=== PATIENT | male | born 1980 | race African-American/Black ===

== ENCOUNTER 2018-02-11 12:35 | Emergency (ER) | payer MEDICAID ==
--- NOTE | 2018-02-11 13:07 | ER Document Report ---
ED General - General Stated Complaint: POSSIBLE OVERDOSE Time Seen by Provider: 02/11/18 12:49 TRAVEL OUTSIDE OF THE [place] IN LAST 30 DAYS: No - HPI Notes: Patient is a 38-year-old male that presents to the emergency department for chief complaint of an overdose. Patient arrived by EMS for heroin overdose. Family heard him fall upstairs and when they went to find him he was unresponsive. EMS reported patient appeared dusky and had respirations of 2/min. After 2 intranasal Narcan patient woke up and was conversational. He does endorse IV heroin use today. He has a history of heroin abuse but has not used since getting out of rehab a few months ago. He states he also does occasional cocaine and marijuana. Currently he has no complaints. Past Medical History: Heroin abuse, cocaine abuse Past Surgical History: Negative Social History: Heroin, cocaine, marijuana. Denies tobacco. occasional alcohol Family History: Reviewed and noncontributory for presenting illness Allergies: Reviewed, see documented allergy list. REVIEW OF SYSTEMS: CONSTITUTIONAL : No fever No chills No diaphoresis No recent illness EENT: No vision changes No congestion No sore throat CARDIOVASCULAR: No chest pain No palpitations RESPIRATORY: No shortness of breath No cough No difficulty breathing GASTROINTESTINAL: No abdominal pain No nausea No vomiting No diarrhea GENITOURINARY: No dysuria No hematuria No difficulty urinating MUSCULOSKELETAL: No back pain No leg pain No arm pain SKIN: No rashes No lesions LYMPHATIC: No swollen, enlarged glands. NEUROLOGICAL: No lightheadedness No headache No weakness No paresthesias PSYCHIATRIC: No anxiety No depression PHYSICAL EXAMINATION: Vital signs reviewed, nursing noted reviewed. GENERAL: Well-appearing, well-nourished and in no acute distress. HEAD: Atraumatic, normocephalic. EYES: extraocular movements intact, sclera anicteric, conjunctival injection bilaterally ENT: nares patent, oropharynx clear without exudates. Moist mucous membranes. NECK: Normal range of motion, supple without lymphadenopathy LUNGS: Breath sounds clear to auscultation bilaterally and equal. No wheezes rales or rhonchi. HEART: Regular rate and rhythm without murmurs ABDOMEN: Soft, nontender, normoactive bowel sounds. No rebound, guarding, or rigidity. No masses appreciated. EXTREMITIES: Nontender, good range of motion, no pitting or edema. NEUROLOGICAL: No focal neurological deficits. Moves all extremities spontaneously Motor and sensory grossly intact on exam. PSYCH: Normal mood, normal affect. SKIN: Warm, Dry, normal turgor, no rashes or lesions noted on exposed skin - Related Data Allergies/Adverse Reactions: No Known Allergies Allergy (Verified 05/25/15 11:38) Past Medical History - Social History Smoking Status: Never Smoker Family History: Reviewed & Not Pertinent Past Surgical History: Reports: Hx Genitourinary Surgery - vasectomy May 2013 - Immunizations Hx Diphtheria, Pertussis, Tetanus Vaccination: Yes - 2010 tdap Review of Systems - Review of Systems Notes: Dictated Physical Exam - Vital signs Vitals: Temp 98.1 F 02/11/18 12:40 - Notes Notes: Dictated Course - Re-evaluation Re-evalutation: 02/11/18 13:07 Vitals reviewed and stable. He is oxygenating well on room air. Patient placed on cardiac monitoring. 02/11/18 15:31 On reevaluation patient is sleeping and oxygenating at 95% on room air. He wakes easily and is in no acute distress. All questions were answered and he has remained stable while in the emergency room. Patient was given outpatient resources for detox and encouraged to stop his drug abuse. He will return to the emergency room for any new or worsening symptoms. Patient and family in agreement with the plan. Family will take him home and monitor him this evening. - Vital Signs Vital signs: Temp Pulse Resp BP Pulse Ox 98.1 F 02/11/18 12:40 Discharge - Discharge Clinical Impression: Heroin overdose Qualifiers: Encounter type: initial encounter Injury intent: accidental or unintentional Qualified Code(s): T40.1X1A - Poisoning by heroin, accidental (unintentional), initial encounter Condition: Stable Disposition: HOME, SELF-CARE Instructions: Family Physicians / Practices, Overdose ([facility]) Additional Instructions: Please return to the emergency department if you have any worsening, or concern of your symptoms. Please return to the emergency department if you develop chest pain, difficulty breathing, severe abdominal pain, or ongoing vomiting. Please follow-up with your primary care physician in 2-3 days and any other recommended physicians. If prescribed, take all medications as directed. If you have any questions or concerns do not hesitate to return the emergency department for evaluation. [] Referrals: RAFAL PALUMBO MD [Primary Care Provider] - Follow up in 3-5 days
== END 2018-02-11 16:04 | disposition home or self-care (01) ==
LOC: ER 12:35
DX: T40.1X1A Poisoning by heroin, accidental (unintentional), initial encounter (principal); X58.XXXA Exposure to other specified factors, initial encounter
CPT/HCPCS: 99284